=== PATIENT | female | born 1980 | race Caucasian/White ===

== ENCOUNTER 2017-01-03 17:57 | Inpatient (IN) | payer OTHER, BC ==
[~2017-01-03] VITALS: Ht 165.1 cm; Wt 59.6 kg
[~2017-01-03 17:57] MED LIST: DIAZ-165 PO; DRGTP50 TD; IRON INFUSIONS IV; LANS30CA12 PO; LSN10 PO; LYR75 PO; MECL1TAB40 PO; METH4PAK PO; RXC5 PO
--- NOTE | 2017-01-03 18:24 | EMERGENCY ROOM VISIT NOTE ---
History Report prepared by Fernandez: Mary Lou Handley Under the Supervision of: Dr. Jaun Ness M.D. First contact with patient: 18:06 Chief Complaint: ABDOMINAL PAIN Stated Complaint: STOMA INJURY, ABDOMINAL PAIN, FEVER, CHILLS History of Present Illness The patient is a 36 year old female who presents to the Emergency Room with complaints of persistent abdominal discomfort that began Saturday. She currently rates her discomfort as a 9/10 in severity, describing her pain as a burning pain. The patient reports that she has a history of a Crohn's disease and states that 7 years ago she had a permanent ileostomy placed. She states that since then she has not had many difficulties with her Crohn's noting that she only occasionally gets flair ups with stress. The patient states that Saturday she was sitting on the couch and had an outdoor cat curled up on her stomach. She states that the cat launched off her and ripped her stoma. The patient states that her pain has been worsening and states that yesterday she developed a fever and chills. She has been taking 3 extra strength Tylenol every four hours for the past 24 hours. The patient additionally notes increased abdominal distension and erythema around her stoma. She states that the first few days the area was bleeding quite a bit and states that she has been changing her stoma more often. 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 Source of History: patient Onset: Saturday Position: abdomen Symptom Intensity: 9/10 Quality: burning Timing: other Associated Symptoms: + fevers, + chills Note: Associated Symptoms: increased erythema and abdominal distension. Review of Systems All systems have been listed, reviewed, and are negative other than those previously mentioned. Please see Additional Medical History Sheet. Past Medical & Surgical Medical Problems: (1) Crohn's disease (2) DVT (deep venous thrombosis) (3) Hypertension (4) Ileostomy, has currently (5) Infection of stoma of digestive tract (6) Osteonecrosis (7) Pneumonia (8) Pulmonary embolus (9) SBO (small bowel obstruction) (10) Stomach problems (11) Urinary symptom or sign Family History Cancer Diabetes mellitus Heart disease Hypertension Social History Smoking Status: Never Smoker Smokeless Tobacco Use: No Alcohol Use: none Marital Status: in relationship Housing Status: lives with family Occupation Status: student Current/Historical Medications Scheduled Lansoprazole (Prevacid), 30 MG PO DAILY Lisinopril (Zestril), 10 MG PO DAILYBB Pregabalin (Lyrica), 100 MG PO DAILY Scheduled PRN [Iron Infusions], 1 DOSE IV Q3-6 MONTHS PRN for Allergies Coded Allergies: Barium Sulfate (Verified Allergy, Severe, ANAPHYLAXIS, 05/27/16) Pt drank Entero VU 24% barium for a small bowel study. Immediately after finishing the drink pt states her lips and mouth started to swell Reaction progressed to throat tenderness, "chest pressure", and itching. Pt medicated with 75mg IV Benedryl (total) and 60 mg IV Solu-Medrol. Pt hemodynamically monitored thoughout reaction. After monitoring the patient, symptoms resolved. Adalimumab (Unverified Allergy, Unknown, anaphylaxis\\, 05/27/16) Infliximab (Unverified Allergy, Unknown, anaphylaxis, 05/27/16) NSAIDs (Unverified Allergy, Unknown, gi bleed, 05/27/16) Penicillins (Unverified Allergy, Unknown, hives, 05/27/16) Tramadol (Unverified Allergy, Unknown, hives, 05/27/16) Uncoded Allergies: Entero VU 24% Barium (Allergy, Severe, ANAPHYLAXIS, 05/10/16) Pt drank Entero VU 24% barium for a small bowel study. Immediately after finishing the drink pt states her lips and mouth started to swell Reaction progressed to throat tenderness, "chest pressure", and itching. Pt medicated with 75mg IV Benedryl (total) and 60 mg IV Solu-Medrol. Pt hemodynamically monitored thoughout reaction. After monitoring the patient, symptoms resolved. Artifical Sweetner (Adverse Reaction, Severe, ANAPHYLAXIS, 04/03/16) Physical Exam Vital Signs Date Time Temp Pulse Resp B/P (MAP) Pulse Ox O2 Delivery O2 Flow Rate FiO2 01/03/17 23:29 74 18 140/89 98 01/03/17 22:33 76 01/03/17 22:25 68 18 134/102 97 Room Air 01/03/17 21:37 74 18 153/110 99 Room Air 01/03/17 19:12 85 20 134/107 97 Room Air 01/03/17 18:02 36.7 110 18 100 Room Air Physical Exam GENERAL: Patient awake, alert, oriented x 3. Patient appears to be in moderate distress. Patient follows commands. Patient does not appear toxic. Patient is adequately hydrated and well-nourished. SKIN: No erythema, pallor, cyanosis or rash HEENT: Normal head, pupils equal, reactive to light and accommodation. Neck: Without adenopathy, no neck vein distention. LUNGS: Clear to auscultation. No wheezes, no rales, no rhonchi. HEART: No murmurs. No gallops. No rubs ABDOMEN: Generalized tenderness, stoma in the right mid abdomen that is red and swollen. Swelling and tenderness around the stoma. No masses, no rebound, no hepatomegaly or splenomegaly. GROIN: Tender in the left inguinal area, no adenopathy in the left or right inguinal area. EXTREMITIES: No signs of trauma or infection. NEUROLOGIC: Cranial nerves II-XII within normal limits. No gross motor sensory function deficits. Medical Decision & Procedures Laboratory Results 01/03/17 19:02 Red Blood Count 5.19, Mean Corpuscular Volume 79.2, Mean Corpuscular Hemoglobin 26.2, Mean Corpuscular Hemoglobin Concent 33.1, Mean Platelet Volume 10.3, Neutrophils (%) (Auto) 75.2, Lymphocytes (%) (Auto) 17.6, Monocytes (%) (Auto) 5.6, Eosinophils (%) (Auto) 0.9, Basophils (%) (Auto) 0.6, Neutrophils # (Auto) 7.28, Lymphocytes # (Auto) 1.70, Monocytes # (Auto) 0.54, Eosinophils # (Auto) 0.09, Basophils # (Auto) 0.06 01/03/17 19:02 Test 01/03/17 19:02 White Blood Count 9.68 K/uL (4.8-10.8) Red Blood Count 5.19 M/uL (4.2-5.4) Hemoglobin 13.6 g/dL (12.0-16.0) Hematocrit 41.1 % (37-47) Mean Corpuscular Volume 79.2 fL (80-100) Mean Corpuscular Hemoglobin 26.2 pg (25-34) Mean Corpuscular Hemoglobin Concent 33.1 g/dl (32-36) Platelet Count 288 K/uL (130-400) Mean Platelet Volume 10.3 fL (7.4-10.4) Neutrophils (%) (Auto) 75.2 % Lymphocytes (%) (Auto) 17.6 % Monocytes (%) (Auto) 5.6 % Eosinophils (%) (Auto) 0.9 % Basophils (%) (Auto) 0.6 % Neutrophils # (Auto) 7.28 K/uL (1.4-6.5) Lymphocytes # (Auto) 1.70 K/uL (1.2-3.4) Monocytes # (Auto) 0.54 K/uL (0.11-0.59) Eosinophils # (Auto) 0.09 K/uL (0-0.5) Basophils # (Auto) 0.06 K/uL (0-0.2) RDW Standard Deviation 40.4 fL (36.4-46.3) RDW Coefficient of Variation 14.1 % (11.5-14.5) Immature Granulocyte % (Auto) 0.1 % Immature Granulocyte # (Auto) 0.01 K/uL (0.00-0.02) Anion Gap 8.0 mmol/L (3-11) Est Creatinine Clear Calc Drug Dose 74.6 ml/min Estimated GFR () 91.5 Estimated GFR (Non- 79.0 BUN/Creatinine Ratio 16.4 (10-20) Bedside Lactic Acid Venous 2.32 mmol/L (0.90-1.70) Calcium Level 8.6 mg/dl (8.5-10.1) Total Bilirubin 0.8 mg/dl (0.2-1) Aspartate Amino Transf (AST/SGOT) 15 U/L (15-37) Alanine Aminotransferase (ALT/SGPT) 16 U/L (12-78) Alkaline Phosphatase 137 U/L (45-117) Total Protein 7.6 gm/dl (6.4-8.2) Albumin 3.6 gm/dl (3.4-5.0) Globulin 4.0 gm/dl (2.5-4.0) Albumin/Globulin Ratio 0.9 (0.9-2) Acetaminophen Level < 2 ug/ml (10-30) Laboratory results as stated above per my review. Medications Administered Medications (Trade) Dose Ordered Sig/Joana Route Start Time Stop Time Status Last Admin Dose Admin Morphine Sulfate (MoRPHine SULFATE INJ) 6 mg Q1H PRN IV 01/03/17 18:30 01/17/17 18:29 01/03/17 19:03 6 MG Ondansetron HCl (Zofran Inj) 4 mg Q1HWA PRN IV 01/03/17 18:30 02/02/17 18:29 01/03/17 19:03 4 MG Vancomycin HCl 1500 mg/Sodium Chloride 530 ml @ 200 mls/hr NOW ONCE IV 01/03/17 18:30 01/03/17 21:08 DC 01/03/17 19:03 200 MLS/HR Aztreonam 2000 mg/ Dextrose 110 ml @ 100 mls/hr ONE ONCE IV 01/03/17 18:30 01/03/17 19:35 DC 01/03/17 19:03 100 MLS/HR Morphine Sulfate (MoRPHine SULFATE INJ) 4 mg STK-MED ONCE .ROUTE 01/03/17 20:12 01/03/17 20:13 DC 01/03/17 20:17 4 MG Morphine Sulfate (MoRPHine SULFATE INJ) 2 mg STK-MED ONCE .ROUTE 01/03/17 20:13 01/03/17 20:14 DC 01/03/17 20:17 2 MG Hydromorphone HCl (Dilaudid Inj) 1 mg Q1HWA PRN IV 01/03/17 20:45 01/17/17 20:44 01/03/17 22:52 1 MG Sodium Chloride 2,000 ml @ 1,000 mls/hr Q2H ONCE IV 01/03/17 20:45 01/03/17 22:44 DC 01/03/17 20:59 1,000 MLS/HR ED Course 180: Past medical records reviewed. The patient was evaluated in room B9. A complete history and physical examination was performed. 1829: Ordered Aztreonam 2000 mg/Dextrose 110 mls/hr IV, Vancomycin HCl 1500 mg/ Sodium Chloride 530 ml @ 200 mls/hr IV, Zofran Inj 4 mg IV, Morphine Sulfate 6 mg IV. 2011: Ordered Morphine Sulfate 4 mg .route, 2 mg .route. 2040: I reevaluated the patient and she is still in moderate pain. I discussed all the exam findings with her and I discussed the treatment plan. She verbalized complete understanding and agreement. She will be evaluated for further treatment. 2044: Ordered Sodium Chloride 2000 ml @ 1000 mls/hr IV, Dilaudid Inj 1 mg IV. 2145: I discussed the patients case with LUCIUS Jiménez. He is going to evaluate the patient for further treatment. Medical Decision Nurses notes reviewed. Medical history sheet reviewed. Differential diagnosis includes but is not limited to: infected stoma, sepsis, acetaminophen overdose. The patient is here with pain and swelling of her stoma. She incurred a puncture wound from a cat's pop approximate 4-5 days ago. She now is here with fever, chills and diaphoresis. She has significant abdominal pain. Examination today reveals some swelling of and around the stoma. White count is not elevated. Lactic acid is elevated. Blood cultures were obtained prior to administration of antibiotics. The patient was given IV fluids. I discussed care with the patient and with the hospitalist. Medication Reconciliation: I attest that I have personally reviewed the patient' s current medication list. Blood Pressure Screening: Patient was found to have an elevated blood pressure and will require follow up with the hospitalist. Consults Time Called: 2123 Consulting Physician: LUCIUS Jiménez Returned Call: 2145 I discussed the patients case with LUCIUS Jiménez. He is going to evaluate the patient for further treatment. Impression Primary Impression: Sepsis Additional Impression: Infection of stoma of digestive tract Scribe Attestation The scribe's documentation has been prepared under my direction and personally reviewed by me in its entirety. I confirm that the note above accurately reflects all work, treatment, procedures, and medical decision making performed by me. Departure Information Dispostion Being Evaluated By Hospitalist Referrals No Doctor, Assigned (PCP) Problem Qualifiers
[2017-01-03] MEDS ORDERED: ONDANSETRON INJ 2 MG/ML 2 ML VIAL IV PRN ×2 (18:30→23:00)
[2017-01-03] MEDS ORDERED: VANCOMYCIN INJ 1,500 MG in SODIUM CHLORIDE 0.9% 500ML 500 ML IV ONE (18:30)
[2017-01-03] MEDS ORDERED: AZTREONAM IV 2,000 MG in DEXTROSE 5% 100ML 100 ML IV ONE (18:30)
[2017-01-03] MEDS ORDERED: LISI-461 PO (18:49)
[2017-01-03] MEDS ORDERED: PREG100C PO (18:49)
[2017-01-03] MEDS: MoRPHine SULFATE 10 MG/ML CARP/VIAL IV PRN ×2 (19:03→20:17)
[2017-01-03 19:48] LABS: BASO % 0.6 %; BASO ABS # 0.06 K/uL (0-0.2); COMPLETE YES; EOS % 0.9 %; HEMATOCRIT 41.1 % (37-47); IG% 0.1 %; LYMPH % 17.6 %; MEAN CELL VOLUME 79.2 fL (80-100); MEAN CORPUSCULAR HEMOGLOBIN 26.2 pg (25-34); MEAN CORPUSCULAR HGB CONC 33.1 g/dl (32-36); MEAN PLATELET VOLUME 10.3 fL (7.4-10.4); MONO % 5.6 %; NEUT % 75.2 %; PLATELET COUNT 288 K/uL (130-400); RED BLOOD COUNT 5.19 M/uL (4.2-5.4); WHITE BLOOD COUNT 9.68 K/uL (4.8-10.8)
[2017-01-03 19:49] LABS: BUN/CREATININE RATIO 16.4 (10-20); CALCIUM 8.6 mg/dl (8.5-10.1); CREATININE 0.92 mg/dl (0.60-1.20); POTASSIUM 3.7 mmol/L (3.5-5.1)
[2017-01-03 19:52] LABS: ALB/GLOB RATIO 0.9 (0.9-2)
[2017-01-03] MEDS ORDERED: MoRPHine SULFATE 4 MG/ML 1 ML CARP\\VIAL ONE (20:12)
[2017-01-03] MEDS ORDERED: MoRPHine SULFATE 2 MG/ML CARP ONE (20:13)
[2017-01-03] MEDS ORDERED: SODIUM CHLORIDE 0.9% 1000ML 2,000 ML IV ONE (20:45)
[2017-01-03] MEDS: HYDROmorphone INJ 1 MG/ML SYR IV PRN ×2 (20:59→22:52)
[2017-01-03] MEDS ORDERED: MAGNESIUM HYDROXIDE SUSP 30 ML UDC PO PRN (23:00)
[2017-01-03] MEDS ORDERED: ACETAMINOPHEN 325 MG TAB PO PRN (23:00)
--- NOTE | 2017-01-03 23:08 | History and Physical ---
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 Per patient, on Saturday last week she was sitting on a couch at her brother's ranch in [place] with a cat on her lap. The cat was startled and jumped out of her lap ripping her stoma bag and had pierced her stoma with its nail. She had bleeding at that time which was controlled. She started to develop abdominal pain after the incident especially on the stoma radiating to the back, throbbing in nature. She states that this is the worst pain she has had after her ileostomy. She had some nausea but no vomiting and noticed that the output from her stoma was bloody, greenish black and watery. She developed fevers with chills about 2 days ago and recorded a temperature to be about 102 F. she has been using Tylenol for fever. She started to develop fevers with chills 2 days ago and also noticed that her stoma is more protuberant than usual and the skin around the stoma is erythematous. She is concerned about infection especially since the cat is outdoors a lot in the [place] and is exposed to other animals. Past Medical/Surgical History Medical Problems: (1) Crohn's disease Status: Chronic (2) DVT (deep venous thrombosis) Status: Resolved (3) Hypertension Status: Chronic (4) Ileostomy, has currently Status: Chronic (5) Osteonecrosis Status: Chronic (6) Pneumonia Status: Resolved (7) Pulmonary embolus Status: Resolved (8) Stomach problems Status: Chronic (9) Urinary symptom or sign Status: Resolved Family History Cancer Diabetes mellitus Heart disease Hypertension Social History Smoking Status: Never Smoker Smokeless Tobacco Use: No Marital Status: in relationship Occupational Status: student Allergies Coded Allergies: Barium Sulfate (Verified Allergy, Severe, ANAPHYLAXIS, 05/27/16) Pt drank Entero VU 24% barium for a small bowel study. Immediately after finishing the drink pt states her lips and mouth started to swell Reaction progressed to throat tenderness, "chest pressure", and itching. Pt medicated with 75mg IV Benedryl (total) and 60 mg IV Solu-Medrol. Pt hemodynamically monitored thoughout reaction. After monitoring the patient, symptoms resolved. Adalimumab (Unverified Allergy, Unknown, anaphylaxis\\, 05/27/16) Infliximab (Unverified Allergy, Unknown, anaphylaxis, 05/27/16) NSAIDs (Unverified Allergy, Unknown, gi bleed, 05/27/16) Penicillins (Unverified Allergy, Unknown, hives, 05/27/16) Tramadol (Unverified Allergy, Unknown, hives, 05/27/16) Uncoded Allergies: Entero VU 24% Barium (Allergy, Severe, ANAPHYLAXIS, 05/10/16) Pt drank Entero VU 24% barium for a small bowel study. Immediately after finishing the drink pt states her lips and mouth started to swell Reaction progressed to throat tenderness, "chest pressure", and itching. Pt medicated with 75mg IV Benedryl (total) and 60 mg IV Solu-Medrol. Pt hemodynamically monitored thoughout reaction. After monitoring the patient, symptoms resolved. Artifical Sweetner (Adverse Reaction, Severe, ANAPHYLAXIS, 04/03/16) Home Medications Scheduled Lansoprazole (Prevacid), 30 MG PO DAILY Lisinopril (Zestril), 10 MG PO DAILYBB Pregabalin (Lyrica), 100 MG PO DAILY Scheduled PRN [Iron Infusions], 1 DOSE IV Q3-6 MONTHS PRN for Review of Systems Constitutional: + fever, + chills, + sweats, No weight loss Eyes: No worsening of vision ENT: No hearing loss Respiratory: No cough, No sputum, No shortness of breath Cardiovascular: No chest pain, No orthopnea Abdomen: + pain (around the stoma), + nausea, No vomiting Musculoskeletal: No joint pain Genitourinary - Female: No dysuria, No urinary frequency, No urinary urgency Neurologic: No memory loss, No paralysis Psychiatric: No depression symptoms Endocrine: No fatigue Hematologic / Lymphatic: No abnormal bleeding/bruising Integumentary: + rash (mottling of skin both upper extremities) Physical Exam Vital Signs Date Time Temp Pulse Resp B/P (MAP) Pulse Ox O2 Delivery O2 Flow Rate FiO2 01/03/17 22:33 76 01/03/17 22:25 68 18 134/102 97 Room Air 01/03/17 21:37 74 18 153/110 99 Room Air 01/03/17 19:12 85 20 134/107 97 Room Air 01/03/17 18:02 36.7 110 18 100 Room Air General Appearance: WD/WN, no apparent distress Head: normocephalic Eyes: normal inspection ENT: normal ENT inspection, hearing grossly normal Neck: supple Respiratory/Chest: chest non-tender, lungs clear, normal breath sounds, no respiratory distress, no accessory muscle use Cardiovascular: regular rate, rhythm Abdomen/GI: normal bowel sounds, + tenderness (diffusely), + pertinent finding (ileostomy stoma appears erythematous . sorrounding skin also erythematous. greenish output in bag) Back: normal inspection Extremities/Musculoskelatal: normal inspection, no calf tenderness Neurologic/Psych: alert, normal mood/affect, oriented x 3 Skin: normal color Diagnostics Laboratory Results Results Past 24 Hours Test 01/03/17 19:02 Range/Units White Blood Count 9.68 4.8-10.8 K/uL Red Blood Count 5.19 4.2-5.4 M/uL Hemoglobin 13.6 12.0-16.0 g/dL Hematocrit 41.1 37-47 % Mean Corpuscular Volume 79.2 80-100 fL Mean Corpuscular Hemoglobin 26.2 25-34 pg Mean Corpuscular Hemoglobin Concent 33.1 32-36 g/dl Platelet Count 288 130-400 K/uL Mean Platelet Volume 10.3 7.4-10.4 fL Neutrophils (%) (Auto) 75.2 % Lymphocytes (%) (Auto) 17.6 % Monocytes (%) (Auto) 5.6 % Eosinophils (%) (Auto) 0.9 % Basophils (%) (Auto) 0.6 % Neutrophils # (Auto) 7.28 1.4-6.5 K/uL Lymphocytes # (Auto) 1.70 1.2-3.4 K/uL Monocytes # (Auto) 0.54 0.11-0.59 K/uL Eosinophils # (Auto) 0.09 0-0.5 K/uL Basophils # (Auto) 0.06 0-0.2 K/uL RDW Standard Deviation 40.4 36.4-46.3 fL RDW Coefficient of Variation 14.1 11.5-14.5 % Immature Granulocyte % (Auto) 0.1 % Immature Granulocyte # (Auto) 0.01 0.00-0.02 K/uL Sodium Level 141 136-145 mmol/L Potassium Level 3.7 3.5-5.1 mmol/L Chloride Level 109 98-107 mmol/L Carbon Dioxide Level 24 21-32 mmol/L Anion Gap 8.0 3-11 mmol/L Blood Urea Nitrogen 15 7-18 mg/dl Creatinine 0.92 0.60-1.20 mg/dl Est Creatinine Clear Calc Drug Dose 74.6 ml/min Estimated GFR () 91.5 Estimated GFR (Non- 79.0 BUN/Creatinine Ratio 16.4 10-20 Random Glucose 97 70-99 mg/dl Bedside Lactic Acid Venous 2.32 0.90-1.70 mmol/L Calcium Level 8.6 8.5-10.1 mg/dl Total Bilirubin 0.8 0.2-1 mg/dl Aspartate Amino Transf (AST/SGOT) 15 15-37 U/L Alanine Aminotransferase (ALT/SGPT) 16 12-78 U/L Alkaline Phosphatase 137 45-117 U/L Total Protein 7.6 6.4-8.2 gm/dl Albumin 3.6 3.4-5.0 gm/dl Globulin 4.0 2.5-4.0 gm/dl Albumin/Globulin Ratio 0.9 0.9-2 Acetaminophen Level < 2 10-30 ug/ml Microbiology Results 01/03/17 Blood Culture, Received Pending 01/03/17 Blood Culture, Received Pending Impression Assessment and Plan 36-year-old female with past medical history of Crohn's disease status post ileostomy about 6 years ago, 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 Her stoma was accidentally ripped by her cat and she developed fevers and chills about 2 days ago along with erythema surrounding the stoma. Ileostomy stomal infection: Likely secondary to cat scratch - Has no elevated white count but lactic acid is elevated at 2.3 - Blood cultures pending - Continue vancomycin, aztreonam, azithromycin - ID consult/General surgery consult Crohn's disease status post ileostomy: Stable She is currently not on immunosuppressant therapy History of DVT/PE secondary to prolonged immobilization Status post IVC filter - Use heparin subcutaneous for DVT prophylaxis Osteonecrosis of right shoulder and hip: - Secondary to prolonged steroid use - Pain control per pain management as an OP -Oxycodone 10 mg every 4 hours ( per patient she takes 20 mg oxycodone every 4 hours)- will need to be reviewed with her pain mgmt clinic - Morphine for break through pain Hypertension: -Continue lisinopril GERD: Continue PPI DVT prophylaxis Heparin subcutaneous Full code Disposition: Admitted to [facility] - Resident Physician Supervision Note: I was present with Dr. Nicole during the history and exam. I discussed the case with the resident and agree with the findings and plan as documented in the note. Any exceptions or clarifications are listed here: 36 y/o F known to me from previous admission with history of advanced Crohn's, post-ileostomy and anaphylaxis due to Humira Presents following a cat scratch of her ostomy which has lead to inflammation, pain and fevers OE AAO x 3 S1,2 R CTAB There is inflammation of the ostomy site and surrounding area with pain to palpation No CCE P: Started on broad spectrum antibiotics ID and surgery consulted Pts pain med tolerance is concerning and may need to be addressed Documented By: David Mtz Level of Care Med/Surg Resuscitation Status FULL RESUSCITATION VTE Prophylaxis VTE Risk Assessment Done? Y/N: Yes Risk Level: Moderate Given or contraindicated: Unfractionated heparin SQ Resident Tracking Resident Involvement: Resident Care Provided Care Provided: Adult Hospital Medicine
[2017-01-03 23:29] VITALS: O2SAT 98
[2017-01-04 00:30] VITALS: BP 150/100; PULSE 75; TEMP 36.4; Ht 165.1 cm; Wt 59.6 kg
[2017-01-04] MEDS ORDERED: AZITHROMYCIN IV 500 MG in DEXTROSE 5% 250ML 250 ML IV ONE (00:45)
[2017-01-04] MEDS ORDERED: VANCOMYCIN CONSULT ACTIVE PRN (00:45)
[2017-01-04] MEDS ORDERED: POLYETHYLENE (MIRALAX) 17 GM PACK PO PRN (00:45)
[2017-01-04] MEDS: OXYCODONE HCL IR 5 MG TAB (IMMEDIATE RELEASE) PO PRN ×6 (01:08→22:20)
[2017-01-04] MEDS: AZTREONAM IV 1,000 MG in DEXTROSE 5% 100ML 100 ML IV SCH ×3 (02:18→19:22)
--- NOTE | 2017-01-04 04:41 | Pharmacy Progress Note ---
Pharmacy Abx Initial Consult Date of Service Jan 04, 2017. Pharmacy Dosing Scope Date of Consult: 01/03/17 Consultation requested by: Dr. Nicole Pharmacy is consulted to continue Vancomycin dosing therapy, order appropriate labs and adjust drug dose/frequency. Subjective The patient is a 36 year old female admitted on Jan 03, 2017 at 22:55 with an ileostomy stomal infection. During a visit at her brothers home in [place] his cat jumped off of her and scratched her stomal area causing pain and some bleeding. She presents to the ER today with pain that she explains as worse than when she had the ileostomy placed. Dr. Nicole continued Vancomycin started in the ED and added both Azactam and Azithromycin upon admission. Objective Height (Feet): 5 Height (Inches): 5.00 Weight (Kilograms): 59.600 Vital Signs (Past 12Hrs) Vital Signs Past 12 Hours Date Time Temp Pulse Resp B/P (MAP) Pulse Ox O2 Delivery O2 Flow Rate FiO2 01/04/17 00:30 36.4 75 18 150/100 Room Air 01/03/17 23:29 74 18 140/89 98 01/03/17 22:33 76 01/03/17 22:25 68 18 134/102 97 Room Air 01/03/17 21:37 74 18 153/110 99 Room Air 01/03/17 19:12 85 20 134/107 97 Room Air 01/03/17 18:02 36.7 110 18 100 Room Air Lab Results (24Hrs) Laboratory Tests (24 Hours) Test 01/03/17 19:02 White Blood Count 9.68 K/uL (4.8-10.8) Red Blood Count 5.19 M/uL (4.2-5.4) Hemoglobin 13.6 g/dL (12.0-16.0) Hematocrit 41.1 % (37-47) Mean Corpuscular Volume 79.2 fL (80-100) L Mean Corpuscular Hemoglobin 26.2 pg (25-34) Mean Corpuscular Hemoglobin Concent 33.1 g/dl (32-36) Platelet Count 288 K/uL (130-400) Mean Platelet Volume 10.3 fL (7.4-10.4) Neutrophils (%) (Auto) 75.2 % Lymphocytes (%) (Auto) 17.6 % Monocytes (%) (Auto) 5.6 % Eosinophils (%) (Auto) 0.9 % Basophils (%) (Auto) 0.6 % Neutrophils # (Auto) 7.28 K/uL (1.4-6.5) H Lymphocytes # (Auto) 1.70 K/uL (1.2-3.4) Monocytes # (Auto) 0.54 K/uL (0.11-0.59) Eosinophils # (Auto) 0.09 K/uL (0-0.5) Basophils # (Auto) 0.06 K/uL (0-0.2) Micro Results Date/Time Source Procedure Growth Status 01/03/17 19:02 Blood Blood Culture Pending Received 01/03/17 18:39 Blood Blood Culture Pending Received Assessment & Plan Assessment 36 year old female with Ileostomy in place due to her chronic Crohns disease who presents with infection to the site due to cat scratch. Dr. Nicole continued Vancomycin along with Aztreonam and added Zithromax IV. Plan Vancomycin for treatment of ileostomy stomal infection Vancomycin IV * Loading dose: 1500 mg (25mg/kg) (via ED physician) * Maintenance dose: 1000 mg IV (16.7 mg/kg) every 12 hours * Goal trough level for ileostomy infection : 15-20 mcg/mL * Trough level prior to 0900 dose on 01/05/17 * I estimated her half life at around 10 hours based on current renal function. Pharmacy will continue to follow and will adjust dose/frequency as necessary. Thank you.
[2017-01-04] MEDS ORDERED: MoRPHine SULFATE 2 MG/ML CARP IV STA (05:37)
[2017-01-04] MEDS: LISINOPRIL 10 MG TAB PO SCH (06:05)
[2017-01-04] MEDS: PANTOprazole SOD 40 MG TAB PO SCH (07:28)
[2017-01-04] MEDS: PREGABALIN 100 MG CAP PO SCH (07:28)
[2017-01-04 07:34] LABS: INR 1.1 (0.9-1.1); PROTHROMBIN TIME (PATIENT) 11.3 SECONDS (9.0-12.0)
[2017-01-04 07:35] VITALS: BP 135/93; PULSE 68; TEMP 36.6; O2SAT 98
[2017-01-04 07:58] LABS: ALB/GLOB RATIO 0.9 (0.9-2); BUN/CREATININE RATIO 14.8 (10-20); CALCIUM 8.1 mg/dl (8.5-10.1); CREATININE 0.67 mg/dl (0.60-1.20); POTASSIUM 4.1 mmol/L (3.5-5.1)
[2017-01-04] MEDS ORDERED: VANCOMYCIN INJ 1,000 MG in SODIUM CHLORIDE 0.9% 250ML 250 ML IV SCH (09:00)
[2017-01-04] MEDS: HEPARIN SOD 5000 UNIT/0.5 ML CARP SQ SCH ×3 (09:04→22:21)
--- NOTE | 2017-01-04 09:26 | Medical Consult ---
Consultation Date of Consultation: Jan 04, 2017. Attending Physician: Kendall Brothers MD Reason for Consultation: Stoma injury. 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 Pt states that a cat was sitting on her abdomen when it abruptly jumped off- as a result the cat's nail ripped open her ileostomy bag and pierced her stoma. Patient states that her stoma is typically flush with her skin and now it is protruding- concerned that it needs surgical intervention. Patient states that her abdomen surrounding the stoma is tender and is red- although redness has improved. She does state that the abdominal pain is improving. Patient denies increase in ostomy output. Her appetite has been good. Denies nausea. Patient states that she will be relocating to [place] at the end of the summer full-time for PhD program. She states that she has a PCP in [place] who has referred her to her necessary specialists. She has yet to see them, but plans to see GI, [facility] in near future. Patient has flight back to [place] scheduled for Saturday. Past Medical/Surgical History Medical Problems: (1) Abdominal pain Status: Acute (2) Coccyx contusion Status: Acute (3) Dehydration Status: Acute (4) Exacerbation of Crohn's disease Status: Acute (5) Fall Status: Acute (6) PNA (pneumonia) Status: Acute (7) Sepsis Status: Acute (8) Vertigo Status: Acute Surgical History (1.) s/p Ileostomy approximately 6 years ago. Family History Cancer Diabetes mellitus Heart disease Hypertension Social History Smoking Status: Never Smoker Smokeless Tobacco Use: No Marital Status: in relationship Housing Status: lives with family Occupation Status: student Allergies Coded Allergies: Barium Sulfate (Verified Allergy, Severe, ANAPHYLAXIS, 05/27/16) Pt drank Entero VU 24% barium for a small bowel study. Immediately after finishing the drink pt states her lips and mouth started to swell Reaction progressed to throat tenderness, "chest pressure", and itching. Pt medicated with 75mg IV Benedryl (total) and 60 mg IV Solu-Medrol. Pt hemodynamically monitored thoughout reaction. After monitoring the patient, symptoms resolved. Adalimumab (Unverified Allergy, Unknown, anaphylaxis\\, 05/27/16) Infliximab (Unverified Allergy, Unknown, anaphylaxis, 05/27/16) NSAIDs (Unverified Allergy, Unknown, gi bleed, 05/27/16) Penicillins (Unverified Allergy, Unknown, hives, 05/27/16) Tramadol (Unverified Allergy, Unknown, hives, 05/27/16) Uncoded Allergies: Entero VU 24% Barium (Allergy, Severe, ANAPHYLAXIS, 05/10/16) Pt drank Entero VU 24% barium for a small bowel study. Immediately after finishing the drink pt states her lips and mouth started to swell Reaction progressed to throat tenderness, "chest pressure", and itching. Pt medicated with 75mg IV Benedryl (total) and 60 mg IV Solu-Medrol. Pt hemodynamically monitored thoughout reaction. After monitoring the patient, symptoms resolved. Artifical Sweetner (Adverse Reaction, Severe, ANAPHYLAXIS, 04/03/16) Current Inpatient Medications Current Inpatient Medications Medications (Trade) Dose Ordered Sig/Joana Route Start Time Stop Time Status Last Admin Dose Admin Heparin Sodium (Porcine) (Heparin Sq 5000 Unit/0.5ml) 5,000 unit Q8 SQ 01/04/17 08:00 02/03/17 07:59 Acetaminophen (Tylenol Tab) 650 mg Q4H PRN PO 01/03/17 23:00 02/02/17 22:59 Magnesium Hydroxide (Milk Of Magnesia Susp) 30 ml Q6H PRN PO 01/03/17 23:00 02/02/17 22:59 Polyethylene (Miralax Powder Packet) 17 gm DAILY PRN PO 01/04/17 00:45 02/03/17 00:44 Ondansetron HCl (Zofran Inj) 4 mg Q6H PRN IV 01/03/17 23:00 02/02/17 22:59 Lisinopril (Zestril Tab) 10 mg DAILYBB PO 01/04/17 06:30 02/03/17 06:59 01/04/17 06:05 10 MG Pregabalin (Lyrica Cap) 100 mg DAILY PO 01/04/17 08:00 02/03/17 08:59 01/04/17 07:28 100 MG Pantoprazole Sodium (Protonix Tab) 40 mg QAM PO 01/04/17 08:00 02/03/17 07:59 01/04/17 07:28 40 MG Azithromycin 250 mg/Dextrose 252.5 ml @ 125 mls/hr Q24H IV 01/04/17 23:00 01/14/17 22:59 Vancomycin HCl 1000 mg/Sodium Chloride 270 ml @ 125 mls/hr Q12H IV 01/04/17 09:00 01/14/17 08:59 01/04/17 08:04 125 MLS/HR Aztreonam 1000 mg/ Dextrose 110 ml @ 100 mls/hr Q8H IV 01/04/17 02:00 01/14/17 01:59 01/04/17 02:18 100 MLS/HR Vancomycin HCl (Consult) 1 ea UD PRN N/A 01/04/17 00:45 02/03/17 00:44 Oxycodone HCl (Roxicodone Immediate Rel Tab) 10 mg Q4H PRN PO 01/04/17 01:00 01/18/17 00:59 01/04/17 05:02 10 MG Review of Systems Constitutional: No fever, No chills Abdomen: + pain (at stoma site. ), No nausea, No vomiting Physical Exam Date Time Temp Pulse Resp B/P (MAP) Pulse Ox O2 Delivery O2 Flow Rate FiO2 01/04/17 08:00 Room Air 01/04/17 07:35 36.6 68 16 135/93 (107) 98 Room Air 01/04/17 00:30 36.4 75 18 150/100 Room Air 01/03/17 23:29 74 18 140/89 98 01/03/17 22:33 76 01/03/17 22:25 68 18 134/102 97 Room Air 01/03/17 21:37 74 18 153/110 99 Room Air 01/03/17 19:12 85 20 134/107 97 Room Air 01/03/17 18:02 36.7 110 18 100 Room Air General Appearance: WD/WN, no apparent distress Head: normocephalic, atraumatic Respiratory/Chest: no respiratory distress, no accessory muscle use Abdomen/GI: soft, + pertinent finding (Stoma functioning- no increased output. Pt reports that stoma is usually flush with skin- now it is protruding. No active bleeding. Patient is slightly tender to palpation at stoma and area surrounding stoma. Fading erythema surrounding stoma. ) Laboratory Results Last 24 Hours Test 01/03/17 19:02 01/04/17 06:59 White Blood Count 9.68 K/uL Red Blood Count 5.19 M/uL Hemoglobin 13.6 g/dL Hematocrit 41.1 % Mean Corpuscular Volume 79.2 fL Mean Corpuscular Hemoglobin 26.2 pg Mean Corpuscular Hemoglobin Concent 33.1 g/dl Platelet Count 288 K/uL Mean Platelet Volume 10.3 fL Neutrophils (%) (Auto) 75.2 % Lymphocytes (%) (Auto) 17.6 % Monocytes (%) (Auto) 5.6 % Eosinophils (%) (Auto) 0.9 % Basophils (%) (Auto) 0.6 % Neutrophils # (Auto) 7.28 K/uL Lymphocytes # (Auto) 1.70 K/uL Monocytes # (Auto) 0.54 K/uL Eosinophils # (Auto) 0.09 K/uL Basophils # (Auto) 0.06 K/uL RDW Standard Deviation 40.4 fL RDW Coefficient of Variation 14.1 % Immature Granulocyte % (Auto) 0.1 % Immature Granulocyte # (Auto) 0.01 K/uL Sodium Level 141 mmol/L 139 mmol/L Potassium Level 3.7 mmol/L 4.1 mmol/L Chloride Level 109 mmol/L 110 mmol/L Carbon Dioxide Level 24 mmol/L 25 mmol/L Anion Gap 8.0 mmol/L 4.0 mmol/L Blood Urea Nitrogen 15 mg/dl 10 mg/dl Creatinine 0.92 mg/dl 0.67 mg/dl Est Creatinine Clear Calc Drug Dose 74.6 ml/min 102.4 ml/min Estimated GFR () 91.5 129.2 Estimated GFR (Non- 79.0 111.5 BUN/Creatinine Ratio 16.4 14.8 Random Glucose 97 mg/dl 80 mg/dl Bedside Lactic Acid Venous 2.32 mmol/L Calcium Level 8.6 mg/dl 8.1 mg/dl Total Bilirubin 0.8 mg/dl 0.9 mg/dl Aspartate Amino Transf (AST/SGOT) 15 U/L 11 U/L Alanine Aminotransferase (ALT/SGPT) 16 U/L 13 U/L Alkaline Phosphatase 137 U/L 119 U/L Total Protein 7.6 gm/dl 6.2 gm/dl Albumin 3.6 gm/dl 3.0 gm/dl Globulin 4.0 gm/dl 3.2 gm/dl Albumin/Globulin Ratio 0.9 0.9 Acetaminophen Level < 2 ug/ml Prothrombin Time 11.3 SECONDS Prothromb Time International Ratio 1.1 Lactic Acid Level 1.0 mmol/L Assessment & Plan Dr. Rene in to see and examine patient. PMH - Crohn's Disease- s/p Ileostomy 6 years ago. Recent stoma injury Prolapse of stoma. Patient improving- no surgical intervention indicated at this time. When patient returns to [place] she will follow-up with PCP. Pain controlled. Continue antibiotics. Thank you for this consult- please let us know if we can do anything further for Elizabeth Zhao.
--- NOTE | 2017-01-04 11:10 | Medical Consult ---
Consultation Date of Consultation: Jan 04, 2017. Attending Physician: Kendall Brothers MD Reason for Consultation: Cat scratch of stoma History of Present Illness 36-year-old female with longstanding Crohn's disease, status post ileostomy approximately 6 years ago, as well as history of DVT and PEs, status post IVC filter placement, hypertension, who was in usual state of health until last Saturday when she suffered a cat scratch to the area of her stoma, with stoma bag pulled out with prolapse of the stoma, then developing intense pain, rated 10/10 in intensity, associated with fever and chills, myalgias and arthralgias, and redness around the stoma. She eventually came to the emergency department and was admitted last night. She has been started empirically on combination of vancomycin, aztreonam, and azithromycin. Blood cultures are pending. Fever and chills have improved, still with severe pain in the peristomal area. Has been seen by surgery and no intervention planned. Past Medical/Surgical History Medical Problems: (1) Abdominal pain Status: Acute (2) Coccyx contusion Status: Acute (3) Dehydration Status: Acute (4) Exacerbation of Crohn's disease Status: Acute (5) Fall Status: Acute (6) PNA (pneumonia) Status: Acute (7) Sepsis Status: Acute (8) Vertigo Status: Acute Medical Problems: (1) Crohn's disease (2) DVT (deep venous thrombosis) (3) Hypertension (4) Ileostomy, has currently (5) Infection of stoma of digestive tract (6) Osteonecrosis (7) Pneumonia (8) Pulmonary embolus (9) SBO (small bowel obstruction) (10) Stomach problems (11) Urinary symptom or sign Family History Cancer Diabetes mellitus Heart disease Hypertension Social History Smoking Status: Never Smoker Smokeless Tobacco Use: No Marital Status: in relationship Housing Status: lives with family Occupation Status: student Allergies Coded Allergies: Barium Sulfate (Verified Allergy, Severe, ANAPHYLAXIS, 05/27/16) Pt drank Entero VU 24% barium for a small bowel study. Immediately after finishing the drink pt states her lips and mouth started to swell Reaction progressed to throat tenderness, "chest pressure", and itching. Pt medicated with 75mg IV Benedryl (total) and 60 mg IV Solu-Medrol. Pt hemodynamically monitored thoughout reaction. After monitoring the patient, symptoms resolved. Adalimumab (Unverified Allergy, Unknown, anaphylaxis\\, 05/27/16) Infliximab (Unverified Allergy, Unknown, anaphylaxis, 05/27/16) NSAIDs (Unverified Allergy, Unknown, gi bleed, 05/27/16) Penicillins (Unverified Allergy, Unknown, hives, 05/27/16) Tramadol (Unverified Allergy, Unknown, hives, 05/27/16) Uncoded Allergies: Entero VU 24% Barium (Allergy, Severe, ANAPHYLAXIS, 05/10/16) Pt drank Entero VU 24% barium for a small bowel study. Immediately after finishing the drink pt states her lips and mouth started to swell Reaction progressed to throat tenderness, "chest pressure", and itching. Pt medicated with 75mg IV Benedryl (total) and 60 mg IV Solu-Medrol. Pt hemodynamically monitored thoughout reaction. After monitoring the patient, symptoms resolved. Artifical Sweetner (Adverse Reaction, Severe, ANAPHYLAXIS, 04/03/16) Current Inpatient Medications Current Inpatient Medications Medications (Trade) Dose Ordered Sig/Joana Route Start Time Stop Time Status Last Admin Dose Admin Heparin Sodium (Porcine) (Heparin Sq 5000 Unit/0.5ml) 5,000 unit Q8 SQ 01/04/17 08:00 02/03/17 07:59 01/04/17 09:04 5,000 UNIT Acetaminophen (Tylenol Tab) 650 mg Q4H PRN PO 01/03/17 23:00 02/02/17 22:59 Magnesium Hydroxide (Milk Of Magnesia Susp) 30 ml Q6H PRN PO 01/03/17 23:00 02/02/17 22:59 Polyethylene (Miralax Powder Packet) 17 gm DAILY PRN PO 01/04/17 00:45 02/03/17 00:44 Ondansetron HCl (Zofran Inj) 4 mg Q6H PRN IV 01/03/17 23:00 02/02/17 22:59 Lisinopril (Zestril Tab) 10 mg DAILYBB PO 01/04/17 06:30 02/03/17 06:59 01/04/17 06:05 10 MG Pregabalin (Lyrica Cap) 100 mg DAILY PO 01/04/17 08:00 02/03/17 08:59 01/04/17 07:28 100 MG Pantoprazole Sodium (Protonix Tab) 40 mg QAM PO 01/04/17 08:00 02/03/17 07:59 01/04/17 07:28 40 MG Azithromycin 250 mg/Dextrose 252.5 ml @ 125 mls/hr Q24H IV 01/04/17 23:00 01/14/17 22:59 Aztreonam 1000 mg/ Dextrose 110 ml @ 100 mls/hr Q8H IV 01/04/17 02:00 01/14/17 01:59 01/04/17 10:29 100 MLS/HR Vancomycin HCl (Consult) 1 ea UD PRN N/A 01/04/17 00:45 02/03/17 00:44 Oxycodone HCl (Roxicodone Immediate Rel Tab) 10 mg Q4H PRN PO 01/04/17 01:00 01/18/17 00:59 01/04/17 09:01 10 MG Vancomycin HCl 1000 mg/Sodium Chloride 270 ml @ 125 mls/hr Q8H IV 01/04/17 16:00 01/13/17 15:59 Review of Systems Constitutional: + fever, + chills Eyes: No problem reported ENT: No problem reported Respiratory: No problem reported Cardiovascular: No problem reported Abdomen: + pain Musculoskeletal: + joint pain Genitourinary - Female: No problem reported Neurologic: No problem reported Psychiatric: No problem reported Endocrine: No problem reported Hematologic / Lymphatic: No problem reported Integumentary: + new/changing skin lesions Allergic / Immunologic: No problem reported Physical Exam Date Time Temp Pulse Resp B/P (MAP) Pulse Ox O2 Delivery O2 Flow Rate FiO2 01/04/17 08:00 Room Air 01/04/17 07:35 36.6 68 16 135/93 (107) 98 Room Air 01/04/17 00:30 36.4 75 18 150/100 Room Air 01/03/17 23:29 74 18 140/89 98 01/03/17 22:33 76 01/03/17 22:25 68 18 134/102 97 Room Air 01/03/17 21:37 74 18 153/110 99 Room Air 01/03/17 19:12 85 20 134/107 97 Room Air 01/03/17 18:02 36.7 110 18 100 Room Air General Appearance: WD/WN, no apparent distress Head: normocephalic, atraumatic Eyes: normal inspection, EOMI, sclerae normal ENT: normal ENT inspection, hearing grossly normal, pharynx normal Neck: supple, no adenopathy, thyroid normal, trachea midline Respiratory/Chest: chest non-tender, lungs clear, normal breath sounds, no respiratory distress Cardiovascular: regular rate, rhythm, no gallop, no murmur Abdomen/GI: normal bowel sounds, soft, no organomegaly, + tenderness ( Peristomal area), + pertinent finding (Mild prolapse of stoma) Back: normal inspection, no CVA tenderness Extremities/Musculoskelatal: no calf tenderness, normal capillary refill Neurologic/Psych: alert, normal mood/affect, oriented x 3 Skin: normal color, no rash, + pertinent finding (Minimal erythema around the stoma) Lymphatic: no adenopathy Laboratory Results Date/Time Source Procedure Growth Status 01/03/17 19:02 Blood Blood Culture Pending Received 01/03/17 18:39 Blood Blood Culture Pending Received Last 24 Hours Test 01/03/17 19:02 01/04/17 06:59 White Blood Count 9.68 K/uL Red Blood Count 5.19 M/uL Hemoglobin 13.6 g/dL Hematocrit 41.1 % Mean Corpuscular Volume 79.2 fL Mean Corpuscular Hemoglobin 26.2 pg Mean Corpuscular Hemoglobin Concent 33.1 g/dl Platelet Count 288 K/uL Mean Platelet Volume 10.3 fL Neutrophils (%) (Auto) 75.2 % Lymphocytes (%) (Auto) 17.6 % Monocytes (%) (Auto) 5.6 % Eosinophils (%) (Auto) 0.9 % Basophils (%) (Auto) 0.6 % Neutrophils # (Auto) 7.28 K/uL Lymphocytes # (Auto) 1.70 K/uL Monocytes # (Auto) 0.54 K/uL Eosinophils # (Auto) 0.09 K/uL Basophils # (Auto) 0.06 K/uL RDW Standard Deviation 40.4 fL RDW Coefficient of Variation 14.1 % Immature Granulocyte % (Auto) 0.1 % Immature Granulocyte # (Auto) 0.01 K/uL Sodium Level 141 mmol/L 139 mmol/L Potassium Level 3.7 mmol/L 4.1 mmol/L Chloride Level 109 mmol/L 110 mmol/L Carbon Dioxide Level 24 mmol/L 25 mmol/L Anion Gap 8.0 mmol/L 4.0 mmol/L Blood Urea Nitrogen 15 mg/dl 10 mg/dl Creatinine 0.92 mg/dl 0.67 mg/dl Est Creatinine Clear Calc Drug Dose 74.6 ml/min 102.4 ml/min Estimated GFR () 91.5 129.2 Estimated GFR (Non- 79.0 111.5 BUN/Creatinine Ratio 16.4 14.8 Random Glucose 97 mg/dl 80 mg/dl Bedside Lactic Acid Venous 2.32 mmol/L Calcium Level 8.6 mg/dl 8.1 mg/dl Total Bilirubin 0.8 mg/dl 0.9 mg/dl Aspartate Amino Transf (AST/SGOT) 15 U/L 11 U/L Alanine Aminotransferase (ALT/SGPT) 16 U/L 13 U/L Alkaline Phosphatase 137 U/L 119 U/L Total Protein 7.6 gm/dl 6.2 gm/dl Albumin 3.6 gm/dl 3.0 gm/dl Globulin 4.0 gm/dl 3.2 gm/dl Albumin/Globulin Ratio 0.9 0.9 Acetaminophen Level < 2 ug/ml Prothrombin Time 11.3 SECONDS Prothromb Time International Ratio 1.1 Lactic Acid Level 1.0 mmol/L Assessment & Plan 36-year-old female with Crohn's disease now presents with cat scratch involving her ileostomy with fever, chills, and arthralgias. As well as typical pathogen such as Staph or strep, need to be concerned about possibility of pasteurella or Bartonella infection. Current antibiotic should cover this appropriately, will adjust once final culture results are available. Length of IV antibiotics will be determined by clinical response and culture results. Will follow.
[2017-01-04] MEDS ORDERED: MoRPHine SULFATE 2 MG/ML CARP IV ONE (12:01)
[2017-01-04] MEDS ORDERED: OPTIRAY 320 IV PRN (12:15)
[2017-01-04] MEDS ORDERED: DiphenhydrAMINE HCL 50 MG/ML VIAL IV SCH (13:30)
[2017-01-04] MEDS ORDERED: NURSING VERBAL MED ORDER ONE (13:30)
[2017-01-04] MEDS: MoRPHine SULFATE 2 MG/ML CARP IV PRN ×4 (14:24→20:40)
--- NOTE | 2017-01-04 15:31 | Family Medicine Progress Note ---
Progress Note Date of Service Jan 04, 2017. Subjective Pt evaluation today including: conversation w/ patient, physical exam, chart review, review of inpatient medication list Pain: moderate PO Intake: minimal Patient still having abdominal pain. improved with morphine. Patient no longer having fevers and chills but complaining of joint pain abdominal pain is closer to the area of her stoma bag She has also noticed that her arms appeared mottled in appearance She does not have a GI doctor in [place] and has not needed medication for a long time ' Constitutional: + weakness, + fatigue, No fever, No chills, No weight loss Respiratory: No cough, No shortness of breath Cardiovascular: No chest pain, No edema, No palpitations Abdomen: + pain, + diarrhea, No nausea, No vomiting, No constipation Musculoskeletal: + joint pain, + muscle pain Female : No dysuria, No urinary frequency Endo: No fatigue Skin: No new/changing skin lesions, No color change Medications Current Inpatient Medications Medications (Trade) Dose Ordered Sig/Joana Route Start Time Stop Time Status Last Admin Dose Admin Heparin Sodium (Porcine) (Heparin Sq 5000 Unit/0.5ml) 5,000 unit Q8 SQ 01/04/17 08:00 02/03/17 07:59 01/04/17 14:39 5,000 UNIT Acetaminophen (Tylenol Tab) 650 mg Q4H PRN PO 01/03/17 23:00 02/02/17 22:59 Magnesium Hydroxide (Milk Of Magnesia Susp) 30 ml Q6H PRN PO 01/03/17 23:00 02/02/17 22:59 Polyethylene (Miralax Powder Packet) 17 gm DAILY PRN PO 01/04/17 00:45 02/03/17 00:44 Ondansetron HCl (Zofran Inj) 4 mg Q6H PRN IV 01/03/17 23:00 02/02/17 22:59 Lisinopril (Zestril Tab) 10 mg DAILYBB PO 01/04/17 06:30 02/03/17 06:59 01/04/17 06:05 10 MG Pregabalin (Lyrica Cap) 100 mg DAILY PO 01/04/17 08:00 02/03/17 08:59 01/04/17 07:28 100 MG Pantoprazole Sodium (Protonix Tab) 40 mg QAM PO 01/04/17 08:00 02/03/17 07:59 01/04/17 07:28 40 MG Azithromycin 250 mg/Dextrose 252.5 ml @ 125 mls/hr Q24H IV 01/04/17 23:00 01/14/17 22:59 Aztreonam 1000 mg/ Dextrose 110 ml @ 100 mls/hr Q8H IV 01/04/17 02:00 01/14/17 01:59 01/04/17 10:29 100 MLS/HR Vancomycin HCl (Consult) 1 ea UD PRN N/A 01/04/17 00:45 02/03/17 00:44 Oxycodone HCl (Roxicodone Immediate Rel Tab) 10 mg Q4H PRN PO 01/04/17 01:00 01/18/17 00:59 01/04/17 13:18 10 MG Vancomycin HCl 1000 mg/Sodium Chloride 270 ml @ 125 mls/hr Q8H IV 01/04/17 16:00 01/13/17 15:59 Morphine Sulfate (MoRPHine SULFATE INJ) 2 mg Q2HWA PRN IV 01/04/17 14:00 01/18/17 13:59 01/04/17 14:24 2 MG Ioversol (Optiray 320) 125 ml UD PRN IV 01/04/17 12:15 01/08/17 12:14 Diphenhydramine HCl (Benadryl Inj) 50 mg TODAY@1330 IV 01/04/17 13:30 01/04/17 23:59 01/04/17 14:57 50 MG Objective Vital Signs Date Time Temp Pulse Resp B/P (MAP) Pulse Ox O2 Delivery O2 Flow Rate FiO2 01/04/17 08:00 Room Air 01/04/17 07:35 36.6 68 16 135/93 (107) 98 Room Air 01/04/17 00:30 36.4 75 18 150/100 Room Air 01/03/17 23:29 74 18 140/89 98 01/03/17 22:33 76 01/03/17 22:25 68 18 134/102 97 Room Air 01/03/17 21:37 74 18 153/110 99 Room Air 01/03/17 19:12 85 20 134/107 97 Room Air 01/03/17 18:02 36.7 110 18 100 Room Air Physical Exam General Appearance: WD/WN, + mild distress, + pertinent finding ENT: hearing grossly normal, + pertinent finding (has a lesion on lateral side of tongue, question if chrons ulcer) Neck: no adenopathy, no JVD Respiratory/Chest: lungs clear, no respiratory distress, no accessory muscle use Cardiovascular: regular rate, rhythm, no gallop, no murmur Abdomen: soft, + abnormal bowel sounds (high pitched), + tenderness ( generalized tenderness throughout), + pertinent finding (stoma bag in RLQ ( ileostomy) stoma appears swollen and is raised off the skin. no surrounding erythema. 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 ) Laboratory Results Results Past 24 Hours Test 01/03/17 19:02 01/04/17 06:59 Range/Units White Blood Count 9.68 4.8-10.8 K/uL Red Blood Count 5.19 4.2-5.4 M/uL Hemoglobin 13.6 12.0-16.0 g/dL Hematocrit 41.1 37-47 % Mean Corpuscular Volume 79.2 80-100 fL Mean Corpuscular Hemoglobin 26.2 25-34 pg Mean Corpuscular Hemoglobin Concent 33.1 32-36 g/dl Platelet Count 288 130-400 K/uL Mean Platelet Volume 10.3 7.4-10.4 fL Neutrophils (%) (Auto) 75.2 % Lymphocytes (%) (Auto) 17.6 % Monocytes (%) (Auto) 5.6 % Eosinophils (%) (Auto) 0.9 % Basophils (%) (Auto) 0.6 % Neutrophils # (Auto) 7.28 1.4-6.5 K/uL Lymphocytes # (Auto) 1.70 1.2-3.4 K/uL Monocytes # (Auto) 0.54 0.11-0.59 K/uL Eosinophils # (Auto) 0.09 0-0.5 K/uL Basophils # (Auto) 0.06 0-0.2 K/uL RDW Standard Deviation 40.4 36.4-46.3 fL RDW Coefficient of Variation 14.1 11.5-14.5 % Immature Granulocyte % (Auto) 0.1 % Immature Granulocyte # (Auto) 0.01 0.00-0.02 K/uL Sodium Level 141 139 136-145 mmol/L Potassium Level 3.7 4.1 3.5-5.1 mmol/L Chloride Level 109 110 98-107 mmol/L Carbon Dioxide Level 24 25 21-32 mmol/L Anion Gap 8.0 4.0 3-11 mmol/L Blood Urea Nitrogen 15 10 7-18 mg/dl Creatinine 0.92 0.67 0.60-1.20 mg/dl Est Creatinine Clear Calc Drug Dose 74.6 102.4 ml/min Estimated GFR () 91.5 129.2 Estimated GFR (Non- 79.0 111.5 BUN/Creatinine Ratio 16.4 14.8 10-20 Random Glucose 97 80 70-99 mg/dl Bedside Lactic Acid Venous 2.32 0.90-1.70 mmol/L Calcium Level 8.6 8.1 8.5-10.1 mg/dl Total Bilirubin 0.8 0.9 0.2-1 mg/dl Aspartate Amino Transf (AST/SGOT) 15 11 15-37 U/L Alanine Aminotransferase (ALT/SGPT) 16 13 12-78 U/L Alkaline Phosphatase 137 119 45-117 U/L Total Protein 7.6 6.2 6.4-8.2 gm/dl Albumin 3.6 3.0 3.4-5.0 gm/dl Globulin 4.0 3.2 2.5-4.0 gm/dl Albumin/Globulin Ratio 0.9 0.9 0.9-2 Acetaminophen Level < 2 10-30 ug/ml Prothrombin Time 11.3 9.0-12.0 SECONDS Prothromb Time International Ratio 1.1 0.9-1.1 Lactic Acid Level 1.0 0.4-2.0 mmol/L Microbiology Results 01/03/17 Blood Culture, Received Pending 01/03/17 Blood Culture, Received Pending Assessment and Plan 36-year-old female with past medical history of Crohn's disease status post ileostomy about 6 years ago, 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 Her stoma was accidentally ripped by her cat and she developed fevers and chills about 2 days ago along with erythema surrounding the stoma. Ileostomy stomal infection: - Blood cultures pending - Continue vancomycin, aztreonam, azithromycin - Ordered CT scan - ID suggest continue with AB and follow cultures - Gen Surg suggest stoma will get better with time - contemplate ordering bartonella labs Crohn's disease status post ileostomy - stable - ordered ESR and CT History of DVT/PE secondary to prolonged immobilization Status post IVC filter - Use heparin subcutaneous for DVT prophylaxis Osteonecrosis of right shoulder and hip: - Pain control per pain management as an OP -Oxycodone 10 mg every 4 hours ( per patient she takes 20 mg oxycodone every 4 hours)- will need to be reviewed with her pain mgmt clinic - Morphine 2mg Q2 prn Hypertension: -Continue lisinopril GERD: Continue PPI DVT prophylaxis Heparin subcutaneous Full code Disposition: Admitted to [facility] Resident Physician Supervision Note: I was present with PGY2 Dr. Basilio Rahman during the history and exam. I discussed the case with the resident and agree with the findings and plan as documented in the note. Any exceptions or clarifications are listed here: none. Pt w/ complaints of abdominal pain - but improved. No further fevers/chills. Her Crohn's was doing well prior to the stoma infection. Off medication for Crohn's for some time. VSS no fever gen - NAD mouth - tongue with ulceration heart - RRR lungs - CTA b/l abd - soft, ND, mildly tender particularly about the ostomy region, stoma with inflammation, BS+ ext - no edema A/P: Crohn's disease with ileostomy status. H/o colonic resection. Stoma infection s/p cat scratch to the stoma - appreciate ID/gen surg consultations - proceeding forward with IV abx at this time. CT abd/pelvis today to r/o complicating abscess, etc. Pain control. Kendall Brothers MD Continued [facility] stay due to: multiple IV medications needed
--- NOTE | 2017-01-04 15:59 | DIAGNOSTIC IMAGING REPORT ---
CT SCAN OF THE ABDOMEN AND PELVIS WITH IV CONTRAST CLINICAL HISTORY: Generalized abdominal pain. COMPARISON STUDY: Abdominal CT dated 03/28/2016. TECHNIQUE: Following the IV administration of 43 cc of Optiray 320, CT scan of the abdomen and pelvis is performed from the lung bases to the proximal femora. Images are reviewed in the axial, sagittal, and coronal planes. IV contrast was administered without complication. Automated dose control exposure was utilized. CT DOSE: 284.06 mGy.cm FINDINGS: Lung bases: The heart is normal in size and without pericardial effusion. There are foci of tree-in-bud nodularity seen at both lung bases, greatest in the right middle lobe. This is similar to 03/28/2016 examination. No lobar consolidation or pleural effusion is identified. Liver: The contrast-enhanced liver is normal in size, contour, and attenuation. There is no intrahepatic biliary ductal dilatation. The hepatic veins and portal veins are patent. Gallbladder: Unremarkable. Spleen: Normal in size and attenuation. Pancreas: Unremarkable. Adrenal glands: Unremarkable. Kidneys: The contrast enhanced kidneys demonstrate mild cortical atrophy and are without hydronephrosis. The kidneys enhance symmetrically. Abdominal vasculature: The abdominal aorta is normal in course and caliber. There are suprarenal and infrarenal IVC filters in place. These are unchanged in position from previous. Bowel: There are postoperative changes from subtotal colectomy with Evans pouch formation and right lower quadrant ileostomy. No bowel obstruction is seen. The appendix is surgically absent. Peritoneum: There is no intraperitoneal free air or abdominal ascites. Foci of induration and subcutaneous gas within the ventral abdominal wall are likely related to subcutaneous injections. Lymphadenopathy: Scattered subcentimeter retroperitoneal lymph nodes are incidentally noted. No pathologically enlarged lymph nodes are seen in the abdomen or pelvis. Pelvic viscera: The bladder and uterus are normal as visualized. Bilateral ovarian follicles are observed. Skeletal structures: Thoracolumbar scoliosis is noted. No lytic or blastic lesions are seen. IMPRESSION: 1. There are no acute infectious or inflammatory findings in the abdomen or pelvis. 2. There are postoperative changes from subtotal colectomy and right lower quadrant ileostomy. No bowel obstruction is seen. 3. Foci of tree-in-bud nodularity are again seen at both lung bases, greatest in the right middle lobe. This is unchanged in previous and suggests a chronic infectious/inflammatory pneumonitis. Clinical correlation will be required. Nonemergent follow-up with pulmonology is recommended. 4. Additional findings as above. Electronically signed by: Jameson Ontiveros M.D. 01/04/2017 3:57 PM Dictated Date/Time: 01/04/2017 3:49 PM
[2017-01-04 16:02] VITALS: BP 144/101; PULSE 68; TEMP 36.7; O2SAT 98
[2017-01-04] MEDS: VANCOMYCIN INJ 1,000 MG in SODIUM CHLORIDE 0.9% 250ML 250 ML IV SCH ×2 (16:41→23:58)
[2017-01-04] MEDS: AZITHROMYCIN IV 250 MG in DEXTROSE 5% 250ML 250 ML IV SCH (22:23)
[2017-01-05 00:03] VITALS: BP 114/78; PULSE 53; TEMP 36.8; O2SAT 97
[2017-01-05] MEDS: AZTREONAM IV 1,000 MG in DEXTROSE 5% 100ML 100 ML IV SCH ×3 (02:43→18:03)
[2017-01-05] MEDS: MoRPHine SULFATE 2 MG/ML CARP IV PRN ×5 (02:56→10:31)
[2017-01-05] MEDS: OXYCODONE HCL IR 5 MG TAB (IMMEDIATE RELEASE) PO PRN ×5 (02:56→22:36)
[2017-01-05 04:06] VITALS: PULSE 56
[2017-01-05 06:03] LABS: BASO % 0.4 %; BASO ABS # 0.02 K/uL (0-0.2); COMPLETE YES; EOS % 4.9 %; HEMATOCRIT 35.5 % (37-47); IG% 0.2 %; LYMPH % 32.8 %; LYMPH ABS # 1.66 K/uL (1.2-3.4); MEAN CORPUSCULAR HEMOGLOBIN 25.9 pg (25-34); MEAN CORPUSCULAR HGB CONC 32.4 g/dl (32-36); MEAN PLATELET VOLUME 9.4 fL (7.4-10.4); MONO % 6.1 %; NEUT % 55.6 %; PLATELET COUNT 230 K/uL (130-400); RED BLOOD COUNT 4.44 M/uL (4.2-5.4); WHITE BLOOD COUNT 5.06 K/uL (4.8-10.8)
[2017-01-05] MEDS: HEPARIN SOD 5000 UNIT/0.5 ML CARP SQ SCH ×3 (06:20→21:02)
[2017-01-05 06:24] VITALS: BP 113/78; PULSE 67
[2017-01-05] MEDS: LISINOPRIL 10 MG TAB PO SCH (06:24)
[2017-01-05 06:32] LABS: CREATININE 0.76 mg/dl (0.60-1.20)
[2017-01-05] MEDS: VANCOMYCIN INJ 1,000 MG in SODIUM CHLORIDE 0.9% 250ML 250 ML IV SCH ×2 (07:44→16:26)
[2017-01-05] MEDS: PREGABALIN 100 MG CAP PO SCH (07:44)
[2017-01-05] MEDS: PANTOprazole SOD 40 MG TAB PO SCH (07:44)
--- NOTE | 2017-01-05 07:44 | Surgery Progress Note ---
Surgery Progress Note Date of Service Jan 05, 2017. Subjective feels better ileostomy working pain dec Objective Vital Signs: Date Time Temp Pulse Resp B/P (MAP) Pulse Ox O2 Delivery O2 Flow Rate FiO2 01/05/17 06:24 67 113/78 (90) 01/05/17 04:06 56 01/05/17 00:15 Room Air 01/05/17 00:03 36.8 53 20 114/78 (90) 97 Room Air 01/04/17 16:20 Room Air 01/04/17 16:02 36.7 68 18 144/101 (115) 98 Room Air 01/04/17 08:00 Room Air Abdomen: + pertinent finding (ileostomy bit les prolapsed with no surrounding area of cellulitis and has some output(pt states been working)) Laboratory Results: Results Past 24 Hours Test 01/05/17 05:40 Range/Units White Blood Count 5.06 4.8-10.8 K/uL Red Blood Count 4.44 4.2-5.4 M/uL Hemoglobin 11.5 12.0-16.0 g/dL Hematocrit 35.5 37-47 % Mean Corpuscular Volume 80.0 80-100 fL Mean Corpuscular Hemoglobin 25.9 25-34 pg Mean Corpuscular Hemoglobin Concent 32.4 32-36 g/dl Platelet Count 230 130-400 K/uL Mean Platelet Volume 9.4 7.4-10.4 fL Neutrophils (%) (Auto) 55.6 % Lymphocytes (%) (Auto) 32.8 % Monocytes (%) (Auto) 6.1 % Eosinophils (%) (Auto) 4.9 % Basophils (%) (Auto) 0.4 % Neutrophils # (Auto) 2.81 1.4-6.5 K/uL Lymphocytes # (Auto) 1.66 1.2-3.4 K/uL Monocytes # (Auto) 0.31 0.11-0.59 K/uL Eosinophils # (Auto) 0.25 0-0.5 K/uL Basophils # (Auto) 0.02 0-0.2 K/uL RDW Standard Deviation 41.8 36.4-46.3 fL RDW Coefficient of Variation 14.3 11.5-14.5 % Immature Granulocyte % (Auto) 0.2 % Immature Granulocyte # (Auto) 0.01 0.00-0.02 K/uL Creatinine 0.76 0.60-1.20 mg/dl Est Creatinine Clear Calc Drug Dose 90.3 ml/min Estimated GFR () 115.3 Estimated GFR (Non- 99.5 Assessment & Plan discharge when ok with primary service, no surgical intervention at this time f/ u with in [facility] for ongoing rx for Crohns and f/u ileostomy
[2017-01-05 07:48] VITALS: BP 121/85; PULSE 58; TEMP 36.8; O2SAT 99
[2017-01-05] MEDS ORDERED: VANCOMYCIN TROUGH SCH (08:30)
[2017-01-05] MEDS ORDERED: HYDROmorphone INJ 1 MG/ML SYR IV ONE (11:54)
[2017-01-05] MEDS: D5W AND NSS 1,000 ML IV SCH ×2 (12:10→21:04)
--- NOTE | 2017-01-05 13:16 | Family Medicine Progress Note ---
Progress Note Date of Service Jan 05, 2017. Subjective Pt evaluation today including: conversation w/ patient, physical exam Pain: still having 7/10 pain PO Intake: minimal Voiding: no voiding problems still having 7/10 pain having many loose bowel motions into stoma bag, some blood mixed in with stool still feeling sick and nauseated when trying to eat Denies any vomiting, and fevers/chills have subsided Constitutional: + weakness, + fatigue, No fever, No chills Respiratory: No cough, No sputum, No shortness of breath Cardiovascular: No chest pain, No edema, No palpitations Abdomen: + pain, + nausea, + diarrhea, No vomiting, No constipation Musculoskeletal: + joint pain, No muscle pain Female : No dysuria, No urinary frequency Heme: + abnormal bleeding/bruising (into stoma bag) Medications Current Inpatient Medications Medications (Trade) Dose Ordered Sig/Joana Route Start Time Stop Time Status Last Admin Dose Admin Heparin Sodium (Porcine) (Heparin Sq 5000 Unit/0.5ml) 5,000 unit Q8 SQ 01/04/17 08:00 02/03/17 07:59 01/05/17 14:14 5,000 UNIT Acetaminophen (Tylenol Tab) 650 mg Q4H PRN PO 01/03/17 23:00 02/02/17 22:59 Magnesium Hydroxide (Milk Of Magnesia Susp) 30 ml Q6H PRN PO 01/03/17 23:00 02/02/17 22:59 Polyethylene (Miralax Powder Packet) 17 gm DAILY PRN PO 01/04/17 00:45 02/03/17 00:44 Ondansetron HCl (Zofran Inj) 4 mg Q6H PRN IV 01/03/17 23:00 02/02/17 22:59 Lisinopril (Zestril Tab) 10 mg DAILYBB PO 01/04/17 06:30 02/03/17 06:59 01/05/17 06:24 10 MG Pregabalin (Lyrica Cap) 100 mg DAILY PO 01/04/17 08:00 02/03/17 08:59 01/05/17 07:44 100 MG Pantoprazole Sodium (Protonix Tab) 40 mg QAM PO 01/04/17 08:00 02/03/17 07:59 01/05/17 07:44 40 MG Azithromycin 250 mg/Dextrose 252.5 ml @ 125 mls/hr Q24H IV 01/04/17 23:00 01/14/17 22:59 01/04/17 22:23 125 MLS/HR Aztreonam 1000 mg/ Dextrose 110 ml @ 100 mls/hr Q8H IV 01/04/17 02:00 01/14/17 01:59 01/05/17 10:31 100 MLS/HR Vancomycin HCl (Consult) 1 ea UD PRN N/A 01/04/17 00:45 02/03/17 00:44 Oxycodone HCl (Roxicodone Immediate Rel Tab) 10 mg Q4H PRN PO 01/04/17 01:00 01/18/17 00:59 01/05/17 11:36 10 MG Vancomycin HCl 1000 mg/Sodium Chloride 270 ml @ 125 mls/hr Q8H IV 01/04/17 16:00 01/13/17 15:59 01/05/17 07:44 125 MLS/HR Morphine Sulfate (MoRPHine SULFATE INJ) 2 mg Q2HWA PRN IV 01/04/17 14:00 01/18/17 13:59 01/05/17 10:31 2 MG Ioversol (Optiray 320) 125 ml UD PRN IV 01/04/17 12:15 01/08/17 12:14 Hydromorphone HCl (Dilaudid Inj) 1 mg Q2HWA PRN IV 01/05/17 12:00 01/19/17 11:59 01/05/17 14:16 1 MG Dextrose/Sodium Chloride 1,000 ml @ 100 mls/hr Q10H IV 01/05/17 12:00 02/04/17 11:59 01/05/17 12:10 100 MLS/HR Objective Vital Signs Date Time Temp Pulse Resp B/P (MAP) Pulse Ox O2 Delivery O2 Flow Rate FiO2 01/05/17 08:00 Room Air 01/05/17 07:48 36.8 58 16 121/85 (97) 99 Room Air 01/05/17 06:24 67 113/78 (90) 01/05/17 04:06 56 01/05/17 00:15 Room Air 01/05/17 00:03 36.8 53 20 114/78 (90) 97 Room Air 01/04/17 16:20 Room Air 01/04/17 16:02 36.7 68 18 144/101 (115) 98 Room Air Physical Exam Notes: General Appearance: WD/WN, + mild distress, ENT: hearing grossly normal, + pertinent finding (has a lesion on lateral side of tongue, question if chrons ulcer) Neck: no adenopathy, no JVD Respiratory/Chest: lungs clear, no respiratory distress, no accessory muscle use Cardiovascular: regular rate, rhythm, no gallop, no murmur Abdomen: soft, + abnormal bowel sounds (regular-->high pitched), + tenderness mild tenderness throught, + pertinent finding (stoma bag in RLQ (ileostomy) stoma appears mildly erythematous (improved) and is raised off the skin. no surrounding erythema. 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 ) Laboratory Results Results Past 24 Hours Test 01/05/17 05:40 Range/Units White Blood Count 5.06 4.8-10.8 K/uL Red Blood Count 4.44 4.2-5.4 M/uL Hemoglobin 11.5 12.0-16.0 g/dL Hematocrit 35.5 37-47 % Mean Corpuscular Volume 80.0 80-100 fL Mean Corpuscular Hemoglobin 25.9 25-34 pg Mean Corpuscular Hemoglobin Concent 32.4 32-36 g/dl Platelet Count 230 130-400 K/uL Mean Platelet Volume 9.4 7.4-10.4 fL Neutrophils (%) (Auto) 55.6 % Lymphocytes (%) (Auto) 32.8 % Monocytes (%) (Auto) 6.1 % Eosinophils (%) (Auto) 4.9 % Basophils (%) (Auto) 0.4 % Neutrophils # (Auto) 2.81 1.4-6.5 K/uL Lymphocytes # (Auto) 1.66 1.2-3.4 K/uL Monocytes # (Auto) 0.31 0.11-0.59 K/uL Eosinophils # (Auto) 0.25 0-0.5 K/uL Basophils # (Auto) 0.02 0-0.2 K/uL RDW Standard Deviation 41.8 36.4-46.3 fL RDW Coefficient of Variation 14.3 11.5-14.5 % Immature Granulocyte % (Auto) 0.2 % Immature Granulocyte # (Auto) 0.01 0.00-0.02 K/uL Creatinine 0.76 0.60-1.20 mg/dl Est Creatinine Clear Calc Drug Dose 90.3 ml/min Estimated GFR () 115.3 Estimated GFR (Non- 99.5 Assessment and Plan 36-year-old female with past medical history of Crohn's disease status post ileostomy about 6 years ago, 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 Her stoma was accidentally ripped by her cat and she developed fevers and chills along with erythema surrounding the stoma. Ileostomy stomal infection: - Blood cultures negative to date - Continue vancomycin, aztreonam, azithromycin - CT scan without any active disease - Gen Surg suggest stoma will get better with time - Order stool culture and c.diff Crohn's disease status post ileostomy - stable - CT without any active disease History of DVT/PE secondary to prolonged immobilization Status post IVC filter - Use heparin subcutaneous for DVT prophylaxis Osteonecrosis of right shoulder and hip: - Pain control per pain management as an OP -Oxycodone 10 mg every 4 hours ( per patient she takes 20 mg oxycodone every 4 hours) - Switched to dilaudid 1mg Q2 PRN as patient tolerant to morphine and it was not helping Hypertension: -Continue lisinopril GERD: Continue PPI DVT prophylaxis Heparin subcutaneous Full code Disposition: Admitted to [facility] Resident Physician Supervision Note: I was present with PGY2 Dr. Basilio Rahman during the history and exam. I discussed the case with the resident and agree with the findings and plan as documented in the note. Any exceptions or clarifications are listed here: none. We changed her morphine to IV dilaudid this am and this helped her abdominal pain more so than the morphine. No vomiting. Appetite slightly better today. Ileostomy output is slightly blood-tinged. VSS no fever gen - NAD mouth - tongue with ulceration heart - RRR lungs - CTA b/l abd - soft, ND, mildly tender still near the stoma site, no peritoneal signs skin - stoma is less inflamed and less erythematous today CT abd/pelvis without acute findings A/P: Crohn's disease with ileostomy status. H/o colonic resection. Stoma infection s/p cat scratch to the stoma - appreciate ID/gen surg consultations - cont IV abx. Check c. diff toxin and stool cx. Cont pain control. Add IVF due to poor oral intake. Kendall Brothers MD Continued [facility] stay due to: multiple IV medications needed
[2017-01-05] MEDS: HYDROmorphone INJ 1 MG/ML SYR IV PRN ×4 (14:16→21:00)
[2017-01-05] MEDS ORDERED: VANCOMYCIN TROUGH ONE (15:30)
[2017-01-05 16:03] VITALS: BP 122/84; PULSE 56; TEMP 36.5; O2SAT 100
--- NOTE | 2017-01-05 17:17 | Pharmacy Progress Note ---
Pharmacy Abx Initial Consult Date of Service Jan 05, 2017. Pharmacy Dosing Scope Date of Consult: 01/03/17 Consultation requested by: Dr. Nicole Pharmacy is consulted to initiate vancomycin IV dosing therapy, order appropriate labs and adjust drug dose/frequency. Subjective The patient is a 36 year old female admitted on Jan 03, 2017 at 22:55 with a ileostomy stomal infection. Objective Height (Feet): 5 Height (Inches): 5.00 Weight (Kilograms): 59.600 Vital Signs (Past 12Hrs) Vital Signs Past 12 Hours Date Time Temp Pulse Resp B/P (MAP) Pulse Ox O2 Delivery O2 Flow Rate FiO2 01/05/17 16:03 36.5 56 18 122/84 (97) 100 Room Air 01/05/17 08:00 Room Air 01/05/17 07:48 36.8 58 16 121/85 (97) 99 Room Air 01/05/17 06:24 67 113/78 (90) Lab Results (24Hrs) Laboratory Tests (24 Hours) Test 01/05/17 05:40 White Blood Count 5.06 K/uL (4.8-10.8) Red Blood Count 4.44 M/uL (4.2-5.4) Hemoglobin 11.5 g/dL (12.0-16.0) L Hematocrit 35.5 % (37-47) L Mean Corpuscular Volume 80.0 fL (80-100) Mean Corpuscular Hemoglobin 25.9 pg (25-34) Mean Corpuscular Hemoglobin Concent 32.4 g/dl (32-36) Platelet Count 230 K/uL (130-400) Mean Platelet Volume 9.4 fL (7.4-10.4) Neutrophils (%) (Auto) 55.6 % Lymphocytes (%) (Auto) 32.8 % Monocytes (%) (Auto) 6.1 % Eosinophils (%) (Auto) 4.9 % Basophils (%) (Auto) 0.4 % Neutrophils # (Auto) 2.81 K/uL (1.4-6.5) Lymphocytes # (Auto) 1.66 K/uL (1.2-3.4) Monocytes # (Auto) 0.31 K/uL (0.11-0.59) Eosinophils # (Auto) 0.25 K/uL (0-0.5) Basophils # (Auto) 0.02 K/uL (0-0.2) Micro Results Date/Time Source Procedure Growth Status 01/03/17 19:02 Blood Blood Culture - Preliminary NO GROWTH TO DATE. Resulted 01/03/17 18:39 Blood Blood Culture - Preliminary NO GROWTH TO DATE. Resulted 01/05/17 17:00 Stool C.difficile Toxin B Gene (PCR) Pending Received 01/05/17 17:00 Stool Shiga Toxin Test Pending Received 01/05/17 17:00 Stool Stool Culture Pending Received Risk Factors for Resistance * h/o Crohn's disease s/p ileostomy 6 years ago Assessment & Plan Assessment 36 year old female admitted with a stomal infection. She was suffered a cat scratch while in [place] visiting her brother. The cat spends a lot of time outside. The patient has had increased erythema and bleeding/drainage. She is currently receiving vancomycin, aztreonam, and azithromycin. Plan vancomycin for treatment of stomal infection from a cat scratch Vancomycin IV * trough elevated at 29.7 (drawn correctly) .... held 1600 dose. Estimated that q12 hour may be a more appropriate frequency. Will hold vancomycin x 10 hours ( estimate level will remain therapeutic) then restart a lowered frequency * Maintenance dose: 1000 mg IV (16.7 mg/kg) every 12 hours * Goal trough level for stomal infection with risk factors : 15 to 20 mcg/mL * Trough ordered for 01/07/17 prior to 1400 dose Pharmacy will continue to follow and will adjust dose/frequency as necessary. Thank you.
[2017-01-05] MEDS: AZITHROMYCIN IV 250 MG in DEXTROSE 5% 250ML 250 ML IV SCH (22:29)
[2017-01-06 00:12] VITALS: BP 122/81; PULSE 63; TEMP 36.7; O2SAT 99
[2017-01-06] MEDS: HYDROmorphone INJ 1 MG/ML SYR IV PRN ×4 (00:28→08:46)
[2017-01-06] MEDS: OXYCODONE HCL IR 5 MG TAB (IMMEDIATE RELEASE) PO PRN ×4 (02:08→14:11)
[2017-01-06] MEDS: AZTREONAM IV 1,000 MG in DEXTROSE 5% 100ML 100 ML IV SCH ×2 (02:08→09:53)
[2017-01-06] MEDS: VANCOMYCIN INJ 1,000 MG in SODIUM CHLORIDE 0.9% 250ML 250 ML IV SCH ×2 (03:22→14:00)
[2017-01-06] MEDS: HEPARIN SOD 5000 UNIT/0.5 ML CARP SQ SCH ×2 (06:29→14:00)
[2017-01-06 06:30] VITALS: BP 124/84; PULSE 64
[2017-01-06] MEDS: LISINOPRIL 10 MG TAB PO SCH (06:35)
[2017-01-06 06:57] LABS: CALCIUM 8.1 mg/dl (8.5-10.1); CREATININE 0.68 mg/dl (0.60-1.20); POTASSIUM 4.1 mmol/L (3.5-5.1)
[2017-01-06 07:11] LABS: HEMATOCRIT 36.2 % (37-47); MEAN CELL VOLUME 79.2 fL (80-100); MEAN CORPUSCULAR HEMOGLOBIN 24.9 pg (25-34); MEAN PLATELET VOLUME 9.2 fL (7.4-10.4); PLATELET COUNT 213 K/uL (130-400); RED BLOOD COUNT 4.57 M/uL (4.2-5.4); WHITE BLOOD COUNT 4.78 K/uL (4.8-10.8)
[2017-01-06 07:23] LABS: MEAN CORPUSCULAR HGB CONC 31.5 g/dl (32-36)
[2017-01-06] MEDS: PANTOprazole SOD 40 MG TAB PO SCH (07:54)
[2017-01-06] MEDS: PREGABALIN 100 MG CAP PO SCH (07:55)
[2017-01-06] MEDS: D5W AND NSS 1,000 ML IV SCH ×2 (07:58→18:00)
[2017-01-06] MEDS ORDERED: DOXY100C76 PO (15:15)
[2017-01-06] MEDS ORDERED: AZIT500T26 PO (15:15)
[2017-01-06] MEDS ORDERED: RXC5 PO (15:15)
--- NOTE | 2017-01-06 15:19 | Discharge Instructions ---
Discharge Instructions Date of Service Jan 06, 2017. Admission Reason for Admission: Infection Of Stoma Of Digestive Tract With Iv&Oral Discharge Discharge Diagnosis / Problem: Stoma Infection Discharge Goals Goal(s): Improve disease control, Prevent Disease Progression Activity Recommendations Activity Limitations: per Instructions/Follow-up section . Instructions / Follow-Up Instructions / Follow-Up You were in the hospital due to an infection of your stoma site. We will be sending you home with antibiotics. Please take these as prescribed. You have any worsening of your diarrhea you can take loperamide to slow down your bowel movements Please follow up with your doctor in [place] If you have any worsening abdominal pain, bleeding into your stoma bag or fever greater then 100.4 please come back to the emergency department Current Hospital Diet Patient's current hospital diet: Full Liquid Diet Discharge Diet Recommended Diet: Regular Diet Pending Studies Studies pending at discharge: yes List of pending studies: Final blood culture and stool culture (negative to date) Medical Emergencies . Who to Call and When: Medical Emergencies: If at any time you feel your situation is an emergency, please call 911 immediately. . Non-Emergent Contact Non-Emergency issues call your: Primary Care Provider . . "Provider Documentation" section prepared by Basilio Rahman. . VTE Core Measure Inpt VTE Proph given/why not?: Unfractionated heparin SQ
[2017-01-06 16:27] VITALS: BP 162/110; PULSE 73; TEMP 36.6; O2SAT 100
[2017-01-06 16:28] VITALS: BP 162/110; PULSE 73; TEMP 36.6; O2SAT 100
[2017-01-06] MEDS ORDERED: OXYCODONE HCL IR 5 MG TAB (IMMEDIATE RELEASE) PO STA (16:53)
[2017-01-06] MEDS ORDERED: OXYCODONE HCL IR 5 MG TAB (IMMEDIATE RELEASE) PO PRN (17:00)
[2017-01-06 18:03] VITALS: BP 162/110; PULSE 73; TEMP 36.6; O2SAT 100
--- NOTE | 2017-01-06 21:26 | Discharge Summary ---
Discharge Summary Date of Service Jan 06, 2017. (Basilio Rahman MD) Discharge Summary Admission Date: Jan 03, 2017 at 22:55 Discharge Date: Jan 06, 2017 Discharge Disposition: Home Principal Diagnosis: Stoma Infection Consultations: Infectious Disease (Basilio Rahman MD) Problems/Secondary Diagnoses: 1. ileostomy status 2. Crohn's disease 3. chronic pain syndrome 4. h/o DVT with PE 5. 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 There are no acute infectious or inflammatory findings in the abdomen or pelvis. 2. There are postoperative changes from subtotal colectomy and right lower quadrant ileostomy. No bowel obstruction is seen. 3. Foci of tree-in-bud nodularity are again seen at both lung bases, greatest in the right middle lobe. This is unchanged in previous and suggests a chronic infectious/inflammatory pneumonitis. Clinical correlation will be required. Nonemergent follow-up with pulmonology is recommended. Consultations: general surgery (Kendall Brothers MD) Medication Reconciliation New Medications: Azithromycin (Zithromax) 500 Mg Tab 500 MG PO DAILY for 5 Days, #5 TAB Doxycycline Monohydrate (Monodox) 100 Mg Cap 100 MG PO BID for 5 Days, #10 CAP Oxycodone HCl (Oxycodone HCl) 5 Mg Tab 10 MG PO Q4H PRN for Pain for 30 Days, #240 TAB Continued Medications: Lansoprazole (Prevacid) 30 Mg Capcr 30 MG PO DAILY, CAP Lisinopril (Zestril) 10 Mg Tab 10 MG PO DAILYBB, TAB Pregabalin (Lyrica) 100 Mg Cap 100 MG PO DAILY, CAP [Iron Infusions] () 1 DOSE IV Q3-6 MONTHS PRN for Discharge Exam Patient feeling much better Able to tolerate normal diet. Says fluid into stoma bag has decreased Denies any constitutional symptoms Would like to go home today as she will not have a ride for the next couple of weeks Review of Systems: Constitutional: No fever, No chills Respiratory: No cough, No wheezing, No shortness of breath Cardiovascular: No chest pain, No edema, No palpitations Abdomen: + pain (minimal), + diarrhea, No nausea, No vomiting, No constipation Musculoskeletal: No joint pain (Basilio Rahman MD) Hospital Course 36-year-old female with past medical history of Crohn's disease presented to the ER on 01/03/2017 with complaints of abdominal pain. She was sitting on a couch at her brother's ranch in [place] with a cat on her lap. The cat was startled and jumped out of her lap ripping her stoma bag and had pierced her stoma with its nail. She had bleeding at that time which was controlled. She started to develop abdominal pain after the incident especially on the stoma radiating to the back, throbbing in nature. She states that this is the worst pain she has had after her ileostomy. She had some nausea but no vomiting and noticed that the output from her stoma was bloody, greenish black and watery. She developed fevers with chills about 2 days ago and recorded a temperature to be about 102 F. In the ED all her lab work was unremarkable and the patient was afebrile. She was started on wide spectrum antibiotics vanc, aztreonam, and azithromycin. ID was consulted on the patient, she was started on IV morphine for pain control and she was admitted to the med/surg [facility]. On day 2 of hospitalization she continued to have significant abdominal pain therefore we decided to order a CT scan of her abdomen which came back as unremarkable. We then also increased her morphine to Q2 hours. General Surgery were consulted on the patient who said that the stoma was erythematous and raised but would subsequently return to normal in a few days. On day 3 she continued to have pain therefore we switched over to dilaudid. Her blood cultures came back negative as did a lab done for cdiff. She had stool cultures taken at this time. On day 4 patient was feeling better was able to tolerate a normal diet and her preliminary stool cultures returned as negative. The patient was discharged on a 5 day course of azithromycin and doxycycline, She was hemodynamically stable and in no acute distress Total Time Spent: Less than 30 minutes This includes examination of the patient, discharge planning, medication reconciliation, and communication with other providers. (Basilio Rahman MD) Resident Physician Supervision Note: I was present with PGY2 Dr. Basilio Rahman during the discharge history and exam. I discussed the case with the resident and agree with the findings and plan as documented in the discharge summary. Any exceptions or clarifications are listed here: none. 36yo female with h/o Crohn's disease and ileostomy status along with chronic pain syndrome who presented with a stoma infection due to a recent incident involving a cat scratching the stoma site. She was treated with broad-spectrum IV antibiotic therapy. She was seen in consult by ID and general surgery; the latter did not recommend any surgical intervention. CT abd/pelvis failed to reveal a complicating abscess or other pathology. Her stoma inflammation improved while hospitalized as did her pain. She will discharge to home on a course of doxycycline and zithromax. Discharge exam: gen - nad mouth - ulceration on tip of tongue heart - RRR, s1, s2, no murmur lungs - CTA b/l abd - soft, mild tenderness around stoma site, stoma relatively normal in color/ size (ie inflammation decreased), no peritoneal signs, no HSM, BS+ ext - no edema The patient is moving to [place] within the next week and will f/u with her new physicians upon arrival there. Documented By: Kendall Brothers MD (Kendall Brothers MD) Discharge Instructions Please refer to the electronic Patient Visit Report (Discharge Instructions) for additional information. (Basilio Rahman MD)
[2017-01-07] MEDS ORDERED: VANCOMYCIN TROUGH SCH (13:30)
== END 2017-01-06 19:07 | disposition home or self-care (01) | DRG 394 ==
LOC: C.EDB 17:59 → C.4E 22:55 → ENRESERV 23:21
PROVIDERS: ADMIT Family Medicine; ATTEND Internal Medicine
DX: K94.02 Colostomy infection (principal); K50.90 Crohn's disease, unspecified, without complications; M87.151 Osteonecrosis due to drugs, right femur; M87.111 Osteonecrosis due to drugs, right shoulder; K21.9 Gastro-esophageal reflux disease without esophagitis; I10 Essential (primary) hypertension; Z87.01 Personal history of pneumonia (recurrent); Z86.711 Personal history of pulmonary embolism